=== PATIENT | male | born 1980 | race Caucasian/White ===

== ENCOUNTER 2022-08-26 08:39 | Day surgery (SDC) | payer OTHER ==
[2022-08-24 14:48] VITALS: BMI 28.7
[~2022-08-26 08:39] MED LIST: LACTATED RINGERS 1,000 ML IV SCH; LIDOCAINE 1% (10MG/ML) FOR IV START INTRADERMA PRN
[2022-08-26 09:19] VITALS: RESP 16; TEMP 97.8
[2022-08-26] MEDS ORDERED: PROPOFOL 10 MG/ML 20 ML VIAL IV ONE (09:59)
--- NOTE | 2022-08-26 10:16 | P.PCN ---
Date of Procedure: 08/26/22 Procedure(s) Performed: BRIEF HISTORY: Patient is a 41-year-old, pleasant, white male scheduled for an upper endoscopy as a part of evaluation long-standing history of GERD of several days duration. He is currently on Omeprazole 40 mg daily and still has breakthrough symptoms. 2 to 3 times a week.. He denies any dysphagia or odynophagia. PROCEDURE PERFORMED: Esophagogastroduodenoscopy with biopsy. PREOPERATIVE DIAGNOSIS: Long-standing history of GERD. IV sedation per anesthesia. PROCEDURE: After informed consent was obtained, the patient was brought into the endoscopy unit. IV sedation was administered by Anesthesia under continuous monitoring. Initially the Olympus GIF-140 video endoscope was inserted into the mouth. Esophagus intubated without any difficulty. It was gradually advanced into the stomach and duodenum and carefully examined. The bulb and the second part of the duodenum appeared normal. The scope at this time was withdrawn to the stomach, adequately insufflated with air, and upon careful examination, mucosa of the antrum, body, cardia and the fundus appeared normal. The scope was then withdrawn into the esophagus. The GE junction was located at 37 cm from the incisors. Moderate size hiatal hernia noted. The GE junction appeared slightly irregular with a 1-2 mm segment of Feng's-appearing mucosa which was biopsied. The rest of the esophagus appeared normal. There were no erosions or ulcerations seen and the patient tolerated the procedure well. IMPRESSION: 1. Small to moderate size hiatal hernia. 2. Irregular GE junction with one to 2 cm of Feng's-appearing mucosa status post biopsy. RECOMMENDATIONS: The findings of this examination were discussed with the patient as well as his family. He was advised to continue with omeprazole 40 mg daily but change to have output dinnertime and follow antireflux measures..
[2022-08-26 10:35] VITALS: BP 117/73; PULSE 69
== END 2022-08-26 10:51 | disposition home or self-care (01) ==
LOC: ORWHC2ENDO 08:39
PROVIDERS: ATTEND Internal Medicine Gastroenterology
DX: K22.70 Barrett's esophagus without dysplasia (principal); K21.00 Gastro-esophageal reflux disease with esophagitis, without bleeding; K44.9 Diaphragmatic hernia without obstruction or gangrene; N20.0 Calculus of kidney; Z79.899 Other long term (current) drug therapy
CPT/HCPCS: 88305; 43239; J2704

== ENCOUNTER 2025-01-17 10:02 | Day surgery (SDC) | payer OTHER ==
[2025-01-16 12:11] VITALS: BMI 31.5
--- NOTE | 2025-01-17 08:40 | P.GSHP ---
History of Present Illness H&P Date: 01/17/25 CHIEF COMPLAINT: Feng's esophagus HISTORY OF PRESENT ILLNESS: The patient is a 44-year-old male who presents reports gastroesophageal reflux disease and Feng's esophagus including history of aspiration. Upper endoscopy was offered for further evaluation and management. PAST MEDICAL HISTORY: Please see list. PAST SURGICAL HISTORY: Please see list. MEDICATIONS: Please see list. ALLERGIES: Please see list. SOCIAL HISTORY: No illicit drug use FAMILY HISTORY: No reports of Crohn disease or ulcerative colitis. REVIEW OF ORGAN SYSTEMS: CONSTITUTIONAL: No reports of fevers or chills. GI: Denies any blood in stools or constipation. PHYSICAL EXAM: VITAL SIGNS: Stable GENERAL: Well-developed and pleasant in no acute distress. HEENT: No scleral icterus. Extraocular movements grossly intact. Moist buccal mucosa. NECK: Supple without lymphadenopathy. CHEST: Unlabored respirations. Equal bilateral excursions. CARDIOVASCULAR: Regular rate and rhythm. Distal 2+ pulses. ABDOMEN: Soft, nondistended. MUSCULOSKELETAL: No clubbing, cyanosis, or edema. ASSESSMENT: 1. Gastroesophageal reflux disease 2. Feng's esophagus PLAN: 1. Recommend proceeding with an upper endoscopy Past Medical History Past Medical History: GERD/Reflux Additional Past Medical History / Comment(s): Feng's Esophagus,acid reflux when falling asleep,KIDNEY STONES. HIATAL HERNIA History of Any Multi-Drug Resistant Organisms: None Reported Additional Past Surgical History / Comment(s): COLONOSCOPY/EGD. SURGERY FOR KIDNEY STONES Past Anesthesia/Blood Transfusion Reactions: No Reported Reaction Additional Past Anesthesia/Blood Transfusion Reaction / Comment(s): no hx blood transfusion Smoking Status: Former smoker - Past Family History Mother Family Medical History: Cancer Sister(s) Family Medical History: Cancer Medications and Allergies Home Medications Medication Instructions Recorded Confirmed Type Omeprazole [PriLOSEC] 40 mg PO BID 08/24/22 01/16/25 History busPIRone HCl [Buspar] 10 mg PO BID 08/24/22 01/16/25 History Allergies Allergy/AdvReac Type Severity Reaction Status Date / Time No Known Allergies Allergy Verified 01/16/25 12:05
[2025-01-17 10:35] VITALS: TEMP 97.8
[2025-01-17] MEDS: LACTATED RINGERS 1,000 ML IV SCH (10:39)
[2025-01-17] MEDS: IV FLUID CONTINUATION 1,000 ML IV ONE (10:39)
[2025-01-17] MEDS ORDERED: PROPOFOL 10 MG/ML 20 ML VIAL IV ONE (11:40)
[2025-01-17 12:16] VITALS: BP 116/76; PULSE 73; RESP 14
--- NOTE | 2025-01-17 12:19 | P.PCN ---
Date of Procedure: 01/17/25 Description of Procedure: PREOPERATIVE DIAGNOSIS: Diaphragmatic hiatal hernia Gastroesophageal reflux disease Feng's esophagus History of aspiration POSTOPERATIVE DIAGNOSIS: Diaphragmatic hiatal hernia, paraesophageal Gastroesophageal reflux disease Feng's esophagus OPERATION: Esophagogastroduodenoscopy with cold forceps biopsies along esophagus, antrum and duodenum SURGEON: Ca Lim MD ANESTHESIA: MAC. INDICATIONS: The patient is a 44-year-old male who presents with reflux disease and history of aspiration. Benefits and risks of the procedure were described. Informed consent was obtained. DESCRIPTION: The patient was brought into the endoscopy suite and laid in the left lateral decubitus position. An Olympus gastroscope was passed along the posterior oropharynx down to the distal esophagus where the squamocolumnar junction was encountered at 35 cm from the incisors. The stomach was entered and no bile reflux was found. Additional findings are listed below. Biopsies with cold forceps were obtained of the antrum. The first through third portion of the duodenum was examined. Retroflexion of the scope confirmed Hill grade 4 lower esophageal valve. The squamocolumnar junction demonstrated LA grade D erosive esophagitis. The stomach was desufflated. The patient tolerated the procedure well. FINDINGS: Squamocolumnar junction 35 cm from the incisors. Diaphragmatic hiatus at 43 cm Hiatal hernia, 8 cm, sliding-type Hill grade 4 lower esophageal valve. LA grade D erosive esophagitis, 1 cm. Biopsies obtained Biopsies obtained of the duodenum. Chronic gastritis with biopsies obtained. Gastric polyps RECOMMENDATIONS: Recommend surgical correction of paraesophageal diaphragmatic hiatal hernia Plan - Discharge Summary Discharge Rx Participant: No New Discharge Prescriptions: Continue Omeprazole [PriLOSEC] 40 mg PO BID busPIRone HCl [Buspar] 10 mg PO BID Rosuvastatin [Crestor] 10 mg PO DAILY Discharge Medication List Omeprazole [PriLOSEC] 40 mg PO BID 08/24/22 [History] busPIRone HCl [Buspar] 10 mg PO BID 08/24/22 [History] Rosuvastatin [Crestor] 10 mg PO DAILY 01/17/25 [History] Follow up Appointment(s)/Referral(s): Ca Lim MD [STAFF PHYSICIAN] - 01/30/25 3:00 pm Patient Instructions/Handouts: Hiatal Hernia (DC), Feng Esophagus (GEN) Discharge Disposition: HOME SELF-CARE
[2025-01-17 12:53] LABS: Basophils # (A) 0.1 k/uL (0-0.2); Basophils % (A) 1 %; Eosinophils # (A) 0.3 k/uL (0-0.7); Eosinophils % (A) 3 %; HCT 44.8 % (39.0-53.0); HGB 14.7 gm/dL (13.0-17.5); Lymphocytes # (A) 2.2 k/uL (1.0-4.8); Lymphocytes % (A) 28 %; MCH 29.9 pg (25.0-35.0); MCHC 32.8 g/dL (31.0-37.0); MCV 91.3 fL (80.0-100.0); Mean Platelet Volume 7.8; Monocytes # (A) 0.7 k/uL (0-1.0); Monocytes % (A) 9 %; Neutrophils # (A) 4.4 k/uL (1.3-7.7); Neutrophils % (A) 57 %; Platelet Count 254 k/uL (150-450); RBC 4.91 m/uL (4.30-5.90); RDW 12.5 % (11.5-15.5); WBC 7.8 k/uL (3.8-10.6)
== END 2025-01-17 13:18 | disposition home or self-care (01) ==
LOC: ORWHC2ENDO 10:02
PROVIDERS: ATTEND Surgery Plastic and Reconstructive Surgery
DX: K29.50 Unspecified chronic gastritis without bleeding (principal); K21.9 Gastro-esophageal reflux disease without esophagitis; K22.70 Barrett's esophagus without dysplasia; K44.9 Diaphragmatic hernia without obstruction or gangrene; N20.0 Calculus of kidney; F41.9 Anxiety disorder, unspecified; Z87.19 Personal history of other diseases of the digestive system; Z87.891 Personal history of nicotine dependence; Z79.899 Other long term (current) drug therapy
CPT/HCPCS: 88305; 85025; 43239; J2704

== ENCOUNTER 2025-02-23 05:37 | Day surgery (SDC) | payer OTHER ==
[2025-02-23] MEDS: IV FLUID CONTINUATION 1,000 ML IV ONE ×2 (06:32→07:28)
[2025-02-23] MEDS: MIDAZOLAM 2 MG/2 ML VIAL IVP ONE (06:41)
--- NOTE | 2025-02-23 06:58 | P.ANPRN ---
Procedure Note - Anesthesia - Nerve Block Performed Bilateral Erector Spinae Single Time Out Performed: Yes Date of Procedure: 02/23/25 Procedure Start Time: :30 Procedure Stop Time: :35 Location of Patient: PreOp Indication: Acute Post-Operative Pain, Analgesia, Requested by Surgeon Sedation Type: Sedate with meaningful contact maintained Preparation: Sterile Prep Position: Prone Catheter: None Needle Types: Pajunk Needle Gauge: 21 Ultrasound used to observe medication spread: Yes Injectate: 0.5% Ropivacaine (see comment for volume) (Ropiv 20ml+[id number],Needle level T8---Each side) Blood Aspirated: No Pain Paresthesia on Injection Noted: No Resistance on Injection: Normal Image Stored and Saved: Yes Events: Uneventful and Well Tolerated
[2025-02-23] MEDS ORDERED: MIDAZOLAM 2 MG/2 ML VIAL IV PRN (07:00)
[2025-02-23] MEDS ORDERED: HYDROmorphone 0.5 MG/0.5 ML SYRINGE IVP PRN (07:00)
[2025-02-23] MEDS: HEPARIN SODIUM,PORCINE 5,000 UNIT/ML 1 ML VIAL SQ PRN (07:03)
[2025-02-23 07:06] LABS: Basophils # (A) 0.04 10*3/uL (0.00-0.10); Basophils % (A) 0.8 %; Eosinophils # (A) 0.22 10*3/uL (0.04-0.35); Eosinophils % (A) 4.3 %; HGB 15.8 g/dL (13.0-17.0); Lymphocytes # (A) 1.89 10*3/uL (0.90-5.00); MCH 31.2 pg (27.0-32.0); MCHC 36.7 g/dL (32.0-37.0); MCV 84.8 fL (80.0-97.0); Mean Platelet Volume 11.5 fL (9.5-12.2); Monocytes # (A) 0.66 10*3/uL (0.20-1.00); Monocytes % (A) 12.9 %; Platelet Count 204 10*3/uL (140-440); RBC 5.07 10*6/uL (4.40-5.60); RDW 12.1 % (11.5-14.5); WBC 5.11 10*3/uL (4.50-10.00)
[2025-02-23] MEDS: ONDANSETRON 4 MG/2 ML VIAL IVP PRN (07:07)
[2025-02-23] MEDS: ACETAMINOPHEN TAB 500 MG TAB PO PRN (07:07)
[2025-02-23] MEDS: FAMOTIDINE 20 MG/2 ML VIAL IVP ONE (07:08)
[2025-02-23] MEDS: DEXAMETHASONE SOD PHOSPHATE 4 MG/ML 1 ML VIAL IVP ONE (07:08)
[2025-02-23] MEDS ORDERED: DEXAMETHASONE SOD PHOSPHATE 4 MG/ML 1 ML VIAL ONE (07:25)
[2025-02-23] MEDS ORDERED: LIDOCAINE 1% INJ 10MG/ML (20 ML MDV) ONE (07:25)
[2025-02-23] MEDS ORDERED: ROPIVACAINE 5 MG/ML 30 ML VIAL ONE (07:25)
[2025-02-23] MEDS ORDERED: KETOROLAC 15 MG/ML 1 ML VIAL ONE (07:25)
[2025-02-23] MEDS ORDERED: GLYCOPYRROLATE 0.2 MG/ML 2 ML VIAL ONE (07:25)
[2025-02-23] MEDS ORDERED: NEOSTIGMINE 1 MG/ML 10 ML VIAL ONE (07:25)
[2025-02-23] MEDS ORDERED: ONDANSETRON 4 MG/2 ML VIAL ONE (07:25)
[2025-02-23] MEDS ORDERED: SUCCINYLCHOLINE CHLORIDE 200 MG/10 ML VIAL IV ONE (07:25)
[2025-02-23] MEDS ORDERED: MIDAZOLAM 2 MG/2 ML VIAL ONE (07:25)
[2025-02-23] MEDS ORDERED: diphenhydrAMINE 50 MG/ML 1 ML VIAL ONE (07:25)
[2025-02-23] MEDS ORDERED: HYDROmorphone (PF) 1 MG/ML ONE (07:25)
[2025-02-23] MEDS ORDERED: ROCURONIUM 10 MG/ML (5 ML VIAL) IV ONE (07:25)
[2025-02-23] MEDS ORDERED: PROPOFOL 10 MG/ML 20 ML VIAL IV ONE (07:25)
[2025-02-23] MEDS ORDERED: PHENYLEPHRINE-0.9% NACL SYG 1,000 MCG/10 ML SYRINGE ONE (07:25)
[2025-02-23] MEDS ORDERED: fentaNYL (PF) 50 MCG/ML 2 ML AMP ONE (07:25)
[2025-02-23] MEDS: ceFAZolin 2 GM in DEXTROSE 5% IN WATER 50 ML IVPB PRN (07:30)
--- NOTE | 2025-02-23 07:32 | P.GSHP ---
History of Present Illness H&P Date: 02/23/25 CHIEF COMPLAINT: Paraesophageal hiatal hernia with gastroesophageal reflux disease. HISTORY OF PRESENT ILLNESS: The patient is a 44-year-old male who presents with symptomatic paraesophageal hiatal hernia over one year with gastroesophageal reflux disease. He also has chronic aspiration. He has completed upper endoscopy workup. Now s]he presents for surgical intervention. PAST MEDICAL HISTORY: Please see list. PAST SURGICAL HISTORY: Please see list. MEDICATIONS: Please see list. ALLERGIES: Please see list. SOCIAL HISTORY: No illicit drug use FAMILY HISTORY: No reports of Crohn disease or ulcerative colitis. REVIEW OF ORGAN SYSTEMS: CONSTITUTIONAL: No reports of fevers or chills. GI: Denies any blood in stools or constipation. PHYSICAL EXAM: VITAL SIGNS: Stable GENERAL: Well-developed pleasant and in no acute distress. HEENT: No scleral icterus. Extraocular movements grossly intact. Moist buccal mucosa. NECK: Supple without lymphadenopathy. CHEST: Unlabored respirations. Equal bilateral excursions. CARDIOVASCULAR: Regular rate and rhythm. Distal 2+ pulses. ABDOMEN: Soft, nondistended. No peritoneal signs. MUSCULOSKELETAL: No clubbing, cyanosis, or edema. SKIN: Well-perfused. Good skin turgor. REPORTS: Upper endoscopy demonstrates paraesophageal hiatal hernia ASSESSMENT: 1. Diaphragmatic paraesophageal hiatal hernia with severe gastroesophageal reflux disease. PLAN: 1. Recommend proceeding with a robotic paraesophageal hiatal hernia with possible mesh. 2. Benefits and risks of surgical intervention was discussed including possibility of open technique. 3. Inpatient hospitalization recommended of 2 nights 4. DVT prophylaxis. 5. Antibiotic prophylaxis. 6. He has also completed a very low caloric high-protein diet to address unde rlying hepatomegaly. 7. Non narcotic pain management including abdominal wall block described 8. Blood sugar glucose described. 9. Weight loss management described. 10. He is elevated risk due to pre-existing chronic aspiration Past Medical History Past Medical History: GERD/Reflux Additional Past Medical History / Comment(s): Feng's Esophagus, acid reflux when falling asleep, KIDNEY STONES. HIATAL HERNIA History of Any Multi-Drug Resistant Organisms: None Reported Additional Past Surgical History / Comment(s): COLONOSCOPY/EGD. SURGERY FOR KIDNEY STONES Past Anesthesia/Blood Transfusion Reactions: No Reported Reaction Additional Past Anesthesia/Blood Transfusion Reaction / Comment(s): no hx blood transfusion Smoking Status: Former smoker - Past Family History Mother Family Medical History: Cancer Additional Family Medical History / Comment(s): breast cancer Sister(s) Family Medical History: Cancer Additional Family Medical History / Comment(s): colon and lung cancer Medications and Allergies Home Medications Medication Instructions Recorded Confirmed Type Omeprazole [PriLOSEC] 40 mg PO DAILY 08/24/22 02/23/25 History busPIRone HCl [Buspar] 10 mg PO DAILY 08/24/22 02/23/25 History Rosuvastatin [Crestor] 10 mg PO DAILY 01/17/25 02/23/25 History Allergies Allergy/AdvReac Type Severity Reaction Status Date / Time No Known Allergies Allergy Verified 02/23/25 06:21 Surgical - Exam Vital Signs Temp Pulse Resp BP Pulse Ox 96.9 F L 75 16 119/60 98 02/23/25 06:24 02/23/25 06:24 02/23/25 06:24 02/23/25 06:24 02/23/25 06:24 Results - Labs 02/23/25 06:35
[2025-02-23] MEDS: LIDOCAINE 1%-EPI 1:100,000 20 ML VIAL SQ ONE (07:55)
[2025-02-23] MEDS: LACTATED RINGERS 1,000 ML IV ONE (08:31)
[2025-02-23] MEDS: LACTATED RINGERS 1,000 ML IV SCH (11:42)
[2025-02-23] MEDS: ACETAMINOPHEN IV (For NPO) 1,000 MG in EMPTY BAG 1 BAG IVPB SCH (11:48)
[2025-02-23] MEDS: KETOROLAC 15 MG/ML 1 ML VIAL IVP SCH (11:49)
[2025-02-23] MEDS: ONDANSETRON 4 MG/2 ML VIAL IVP SCH (11:49)
[2025-02-23] MEDS: METOCLOPRAMIDE 5 MG/ML 2 ML VIAL IVP SCH (11:49)
[2025-02-23] MEDS: DEXAMETHASONE SOD PHOSPHATE 4 MG/ML 1 ML VIAL IVP SCH (13:54)
[2025-02-23] MEDS: DEXAMETHASONE SOD PHOSPHATE 10 MG/ML 1 ML VIAL IVP STA (13:56)
--- NOTE | 2025-02-23 15:54 | FL ---
SINGLE CONTRAST esophagram: DATE: 02/23/2025 CLINICAL HISTORY: 44-year-old male status post paraesophageal hernia repair, rule out leak/obstructi on TECHNIQUE: Single contrast exam performed with 50 ml Isovue-370 contrast. Total fluoroscopy time 45 seconds. Total images: 24 Total DAP: 145 mGycm2. FINDINGS: The patient swallowed oral contrast without difficulty or delay. There seems to be prominent tertiary waves at the distal esophagus. Given the nonsmooth contour, unab le to exclude a residual small hiatal hernia. There is prompt passage of contrast from the esophagus into the stomach. No extravasation of contrast to suggest leak. There is trace postsurgical free air below the right hemidiaphragm. IMPRESSION: 1. No evidence of leak or significant obstruction status post paraesophageal hernia repair. 2. Nonsmooth contour to the distal esophagus may reflect recent surgery and postoperative edema. Give n this contour, unable to exclude a residual small hiatal hernia. 3. Trace postsurgical free air on the right. [facility], , 02/23/2025 3:52 PM
[2025-02-23] MEDS: ceFAZolin 2 GM in DEXTROSE 5% IN WATER 50 ML IVPB SCH (16:55)
[2025-02-23] MEDS: HYDROmorphone 2 MG/ML 1 ML SYRINGE IVP PRN (16:55)
[2025-02-23] MEDS: SIMETHICONE 40 MG/0.6 ML DROPS 2,000 MG/30 ML BOTTLE PO SCH (20:55)
[2025-02-24 07:28] VITALS: BP 128/72; PULSE 67; RESP 19; TEMP 98.2
[2025-02-24] MEDS: ENOXAPARIN 40 MG/0.4 ML SYRINGE SQ SCH (08:39)
[2025-02-24 10:21] VITALS: BMI 27.8
--- NOTE | 2025-02-24 10:52 | P.DS ---
Providers Date of admission: 02/23/25 Attending physician: Ca Lim Primary care physician: [facility] Course: POSTOPERATIVE DIAGNOSES: 1. Gastroesophageal reflux disease. 2. Paraesophageal hiatal hernia, midline, 6 x 6 cm 3. Fatty liver disease 4. History of aspiration pneumonia due to gastroesophageal reflux disease COURSE: The patient is a 44-year-old male who presents with symptomatic paraesophageal hiatal hernia over one year with gastroesophageal reflux disease. He also has chronic aspiration from severe gastroesophageal reflux disease. He underwent paraesophageal hiatal hernia repair. Esophagram reviewed demonstrated no leaks or obstruction. Discharge instruction including dietary striction reviewed in detail. No lifting over 4 pounds for 4 weeks until March 26 describe including return to work. Close outpatient follow-up on a weekly basis also reviewed. Discharge medications including Tylenol and Gas-X reviewed. All questions were described and reviewed. Patient was stable for discharge. is at bedside. Procedures: OPERATION: 1. Robotic-assisted da Mauricio Xi laparoscopic reduction and repair of incarcerated paraesophageal hiatal hernia, 6 x 6 cm, with Buckley Biopatch A 7 x 10 cm. 2. Intraoperative esophagogastroduodenoscopy 3. Esophageal dilation 56-Syriac bougie ANESTHESIA: General with local anesthetic. ESTIMATED BLOOD LOSS: 5 mL SPECIMENS REMOVED: None. COMPLICATIONS: None. Patient Condition at Discharge: Good Plan - Discharge Summary Discharge Rx Participant: Yes New Discharge Prescriptions: New Acetaminophen Tab [Tylenol Tab] 1,000 mg PO Q6HR PRN #30 tablet PRN Reason: Pain bisacodyL [Dulcolax] 5 mg PO DAILY PRN #10 tab PRN Reason: Constipation Simethicone 40 mg/0.6 ml Drops [Mylicon Drops] 40 mg PO PCHS PRN #30 ml PRN Reason: Gas Continue busPIRone HCl [Buspar] 10 mg PO DAILY Rosuvastatin [Crestor] 10 mg PO DAILY Discontinued Omeprazole [PriLOSEC] 40 mg PO DAILY Discharge Medication List busPIRone HCl [Buspar] 10 mg PO DAILY 08/24/22 [History] Rosuvastatin [Crestor] 10 mg PO DAILY 01/17/25 [History] Acetaminophen Tab [Tylenol Tab] 1,000 mg PO Q6HR PRN #30 tablet 02/23/25 [Rx] Simethicone 40 mg/0.6 ml Drops [Mylicon Drops] 40 mg PO PCHS PRN #30 ml 02/23/25 [Rx] bisacodyL [Dulcolax] 5 mg PO DAILY PRN #10 tab 02/23/25 [Rx] Follow up Appointment(s)/Referral(s): Ca Lim MD [STAFF PHYSICIAN] - 02/27/25 6:30 pm (Telehealth) Patient Instructions/Handouts: Hiatal Hernia (ED), Laparoscopic Hiatal Hernia Repair (DC) Activity/Diet/Wound Care/Special Instructions: Liquid diet only for 2 weeks until March 09 No lifting over 4 pounds in 4 weeks, March 25March shower No soaking in bath tubs for 2 weeks, March 09 Please notify your surgeon if you develop nausea and vomiting including new onset of abdominal pain. Please ambulate at all times. Use Simethicone, Gas-X, Tylenol and ibuprofen or Aleve scheduled for the next 24-48 hours for best pain relief. Use ice along incisions for the today to prevent swelling. Please open, cut, crush pills larger than the size of a tic tack No carbonated beverages. No straws. Do not remove scopolamine patch for 3 days, if present Avoiding Gas Avoid drinking through a straw. Do not chew gum or tobacco. These actions cause you to swallow air, which produces excess gas in your stomach. Chew with your mouth closed. Avoid any foods that cause stomach gas and distention. These foods include corn, dried beans, peas, lentils, onions, broccoli, cauliflower and any food from the cabbage family. Avoid carbonated drinks, alcohol, citrus and tomato products. Carbonated drinks (sodas) are not allowed for the first six to eight weeks after surgery. After this time you can try them again in small amounts Clear Liquid Diet The first diet after surgery is the clear liquid diet. It includes the following liquids: Apple juice Cranberry juice Grape juice Chicken broth Beef broth Flavored gelatin (Jell-O) Decaf tea and coffee Caffeinated beverages are permitted based on tolerance Popcles Maori ice Full Liquid Diet The full liquid diet contains anything on the clear liquid diet, plus: Milk, soy, rice and almond (no chocolate) Cream of wheat, cream of rice, grits Strained creamed soups (no tomato or broccoli) Vanilla and strawberry-flavored ice cream Sherbet Blended, custard styled or whipped yogurt (plain or vanilla only) Vanilla and butterscotch pudding (no chocolate or coconut) Nutritional drinks including Ensure, Boost, [place] Instant Breakfast (no chocolate-flavored) Note: Dairy products, such as milk, ice cream and pudding, may cause diarrhea in some people just after surgery. You may need to avoid milk products. If so, substitute them with lactose-free beverages, such as soy, rice, Lactaid or almond milks. Discharge Disposition: HOME SELF-CARE
--- NOTE | 2025-02-26 14:06 | P.OP ---
Date of Procedure: 02/23/25 Description of Procedure: SURGEON: LINDA BRIONES MD PREOPERATIVE DIAGNOSES: 1. Gastroesophageal reflux disease with Feng's esophagus 2. Paraesophageal hiatal hernia, midline. 3. History of aspiration pneumonia due to gastroesophageal reflux disease 4. Hyperlipidemia 5. Depressive disorder 6. History of kidney stones 7. Generalized anxiety disorder 8. Fatty liver disease POSTOPERATIVE DIAGNOSES: 1. Gastroesophageal reflux disease. 2. Paraesophageal hiatal hernia, midline, 6 x 6 cm, with incarceration 3. History of aspiration pneumonia due to gastroesophageal reflux disease 4. Hyperlipidemia 5. Depressive disorder 6. History of kidney stones 7. Generalized anxiety disorder 8. Presbyesophagus OPERATION: 1. Robotic-assisted da Mauricio Xi laparoscopic reduction and repair of incarcerated paraesophageal hiatal hernia, 6 x 6 cm, with Lyford Biopatch A 7 x 10 cm. 2. Intraoperative esophagogastroduodenoscopy 3. Esophageal dilation 56-Tongan bougie ANESTHESIA: General with local anesthetic. ESTIMATED BLOOD LOSS: 5 mL SPECIMENS REMOVED: None. COMPLICATIONS: None. FINDINGS: 1. Resolved fatty liver disease after 2-week high-protein low carbohydrate diet 2. Bougie 56-Tongan placed 3. 6 x 6 cm paraesophageal incarcerated diaphragmatic hiatal hernia with moderate dissection into the mediastinum. 4. Intra-abdominal esophageal length over 3 cm obtained 5. Lyford Biopatch A onlay mesh placed. INDICATIONS: The patient is a 44-year-old male who presents with regurgitation, aspiration, gastroesophageal reflux disease and a symptomatic diaphragmatic hiatal hernia. Preoperative workup including upper endoscopy demonstrated a Hill grade 4 lower esophageal valve. Given the severity of symptoms, he had elected for surgical intervention. Benefits and risks including bleeding, infection, recurrence, dysphagia, injury to the lung, need for further surgery was described at length. Informed consent was obtained. DESCRIPTION: The patient was brought into the operating room and placed in supine position. Preoperatively she had received Heparin subcutaneously for DVT prophylaxis. After general induction, the abdomen was prepped and draped in standard sterile fashion. The patient had previously voided prior to coming to the operating room. [place]oban draping was placed along the abdomen. A timeout protocol was confirmed with the surgical team, for which the patient's name, procedure to be performed including DVT prophylaxis with bilateral SCDs, and preoperative antibiotics were also confirmed. A robotic da Mauricio Xi system was prepped and primed. At 10 cm from the xiphoid to just below the umbilicus, proposed port sites were marked with indelible marker along the left axillary line, left mid-clavicular line with each ports were marked 10 cm from each other. A 5 mm 0 degrees laparoscopic trocar entry was performed along the left upper quadrant. The abdomen was insufflated to 15 mmHg pressure was tolerated well. Diagnostic laparoscopy demonstrated no injury to bowel, viscera, or mesentery. The liver surface was unremarkable with sharp liver edge consistent with 2-week high-protein low carbohydrate diet. No injury had occurred to the small bowel or viscera. Along the hiatus, a defect was found anteriorly. Next, one 8 mm robotic port was placed along the right upper abdomen. An 8-mm port was were placed along the left lateral abdominal wall. The camera 8-mm port was maintained along the epigastrium via the hernia defect. Another 12 mm port was placed along the left upper abdominal wall after exchanging the 5 mm port. Please note that the ports were placed at least 20 cm away from the target anatomy. Care was taken to check that each robotic arm were safely away from collision with the bed or the patient. At the epigastrium, a median sized Tom liver retractor was placed under direct visualization with the [place] Worker placed over the right shoulder of the patient. The additional third robotic arm was placed along the left aspect of the patient. The patient was repositioned in reverse Trendelenburg position at 14-degrees after lowering the bed. The robot was docked above the left side of the patient. Using a grasper for arm 3, a grasper for arm 1, including vessel sealer for arm 4, the robotic system was docked and primed as described. Instruments were interchanged by the assistant tennis coach. I had sat at the console. The gastrohepatic ligament was cleaved using a vessel sealer. Next, the phrenoesophageal ligament was mobilized and the distal esophagus was mobilized circumferentially with care of to the bilateral vagi nerves. The left and right crura was identified. A midline large hiatal hernia and sac was found. Circumferentially, the hernia sac was excised and brought into the peritoneal cavity. Care was taken to avoid any gastrotomy to the upper pole of the stomach. The measured defect was consistent with 6 cm axial length and 6 cm in width. The distal esophagus at least 3 cm was brought into the abdominal cavity. Once the hiatus and crura was dissected, 2-0 VLOC nonabsorbable suture was placed initially with a [id number] suture to reapproximate the diaphragmatic hiatus posteriorly. To buttress the repair, a Lyford Biopatch A was prepared along the back table as to reinforce the repair as an underlay. The mesh was placed along the crural repair and tagged using horizontal mattress sutures using 2-0 VLOC. I went to the head of the bed to perform intraoperative esophagogastroduodenoscopy. A 56-Tongan bougie was carefully placed along the posterior oropharynx through the hiatus and then removed to address presbyesophagus. An Olympus gastroscope was passed through posterior oropharynx, where the GE junction was found distal to the diaphragmatic hiatus. The intra-abdominal esophageal length obtained during the case was over 3 cm. The stomach was entered. Retroflexion of the scope confirmed a Hill grade 1 lower esophageal valve. Duodenal ulcers along the first portion of duodenum was confirmed without bleeding. The stomach had been desufflated. No evidence of leaks were found either of the mucosal defects of the esophagus or stomach. The hiatal closure was consistent with a 56 Tongan bougie as a bougie was passed. This concluded the endoscopic portion of the case. The robot was undocked from the patient. I re-scrubbed into the case. All instruments and pneumoperitoneum were evacuated from the abdominal cavity. Incisions were reapproximated using 4-0 Monocryl in an interrupted subcuticular fashion. Liquid glue was applied to the skin. Local anesthetic was infiltrated in all wounds for postop analgesia. Multiple intra-abdominal films were obtained. At the end of the procedure, needle, sponge, and instrument count was verified correct by the rn neurosurgical. The patient had tolerated the procedure well and was taken to the postanesthesia unit in stable condition. Intraoperative films were reviewed with the patient's family who was pleased with the level of care.
== END 2025-02-24 11:41 | disposition home or self-care (01) ==
LOC: OR 05:37 → 4SSUR 09:29 → OR 02-24 11:41
PROVIDERS: ATTEND Surgery Plastic and Reconstructive Surgery
DX: K44.0 Diaphragmatic hernia with obstruction, without gangrene (principal); K22.70 Barrett's esophagus without dysplasia; K21.9 Gastro-esophageal reflux disease without esophagitis; K76.0 Fatty (change of) liver, not elsewhere classified; E78.5 Hyperlipidemia, unspecified; F32.A Depression, unspecified; F41.1 Generalized anxiety disorder; Z87.442 Personal history of urinary calculi; Z87.01 Personal history of pneumonia (recurrent); Z87.891 Personal history of nicotine dependence; Z80.3 Family history of malignant neoplasm of breast; Z80.1 Family history of malignant neoplasm of trachea, bronchus and lung; Z01.818 Encounter for other preprocedural examination; Z79.899 Other long term (current) drug therapy
CPT/HCPCS: 43282; 43450; S2900; 64468; 74210; 85025